=== PATIENT | male | born 1985 | race Caucasian/White ===

== ENCOUNTER 2021-10-07 15:56 | Emergency (ER) | payer BC ==
[2021-10-07] MEDS ORDERED: KETOROLAC TROMETHAMINE 30 MG/1 ML VIAL IVPUSH ONE (16:15)
[2021-10-07] MEDS ORDERED: SODIUM CHLORIDE 1,000 ML IV STA (16:15)
[2021-10-07] MEDS ORDERED: ONDANSETRON 4 MG/2 ML VIAL IVPUSH ONE (16:15)
[2021-10-07 16:19] VITALS: BP 125/86; PULSE 80; TEMP 98.4; BMI 30.4
[2021-10-07] MEDS ORDERED: ONDANSETRON 4 MG/2 ML VIAL ONE (16:34)
[2021-10-07] MEDS ORDERED: KETOROLAC TROMETHAMINE 30 MG/1 ML VIAL ONE (16:34)
[2021-10-07 17:11] LABS: ALBUMIN 4.7 g/dl (3.4-5.0); BILIRUBIN,TOTAL 0.9 mg/dl (0.2-1); CALCIUM 9.6 mg/dl (8.5-10); CREATININE 1.1 mg/dl (0.55-1.3); TOT PROT 7.7 g/dl (6.4-8.2)
[2021-10-07 17:15] LABS: HEMATOCRIT 43.3 % (35.4-49); HEMOGLOBIN 15.3 G/dL (11.7-16.9); MCH 30.9 pg (25.7-33.7); MCHC 35.3 g/dl (32.0-35.9); MEAN CELL VOLUME 87.4 fl (80-96); MEAN PLT VOLUME 9.6 fl (7.5-11.1); PLATELET COUNT 195.8 10^3/uL (134-434); RBC 4.95 10^6/uL (4.00-5.60); RDW 14.3 % (11.9-15.9); WHITE BLOOD COUNT 11.4 10^3/uL (4.0-10.8)
[2021-10-07 17:44] LABS: EPITHELIAL CELLS RARE /hpf
[2021-10-07 17:52] LABS: PLATELET ESTIMATE ADEQUATE
== END 2021-10-07 18:57 | disposition home or self-care (01) ==
LOC: FER 15:56
PROC: 3E0333Z Introduction of Anti-inflammatory into Peripheral Vein, Percutaneous Approach (ICD-10-PCS; principal; 2021-10-07)
PROC: 3E033GC Introduction of Other Therapeutic Substance into Peripheral Vein, Percutaneous Approach (ICD-10-PCS; 2021-10-07)
PROC: 3E0337Z Introduction of Electrolytic and Water Balance Substance into Peripheral Vein, Percutaneous Approach (ICD-10-PCS; 2021-10-07)
DX: N20.0 Calculus of kidney (principal)
CPT/HCPCS: 36415; 74177-TC; 80053; 81003; 81015; 83690; 85027; 87086; 99285-25; Q9967